=== PATIENT | male | born 1985 | race Caucasian/White ===

== ENCOUNTER 2017-04-05 05:27 | Emergency (ER) | payer MEDICAID, OTHER ==
[2017-04-05 05:32] VITALS: BMI 26.5
[2017-04-05 05:38] VITALS: BP 134/83; PULSE 87; RESP 18; TEMP 98.3; O2SAT 99
--- NOTE | 2017-04-05 05:55 | ED PDOC ---
Arrival/HPI - General Chief Complaint: ENT Problem Time Seen by Provider: 04/05/17 05:45 Historian: Patient - History of Present Illness Narrative History of Present Illness (Text): 04/05/17 05:52 Star Morton is a 31 year old male, with a history of asthma, presents to the emergency department complaining of 2 day duration of sore throat. States throat discomfort is worsened while swallowing. Patient also complains of some abdominal pain with 1 episode of vomiting today morning prior to arrival. States he took an unknown antibiotic earlier today for minimal relief. Denies fever, chills, headache, dizziness, chest pain, difficulty breathing, diarrhea, urinary symptoms, or any other complaints at this time. Time/Duration: < week (2 days ) Symptom Onset: Gradual Symptom Course: Unchanged Severity Level: Mild Activities at Onset: Light Past Medical History - Provider Review Nursing Documentation Reviewed: Yes - Infectious Disease Hx of Infectious Diseases: None - Tetanus Immunization Tetanus Immunization: Unknown - Cardiac Hx Cardiac Disorders: No - Pulmonary Hx Respiratory Disorders: Yes Hx Asthma: Yes - Neurological Hx Neurological Disorder: No - HEENT Hx HEENT Disorder: Yes Other/Comment: H/O nasal fx - Renal Hx Renal Disorder: No - Endocrine/Metabolic Hx Endocrine Disorders: No - Hematological/Oncological Hx Blood Disorders: No - Integumentary Hx Dermatological Disorder: No - Musculoskeletal/Rheumatological Hx Musculoskeletal Disorders: No - Gastrointestinal Hx Gastrointestinal Disorders: No - Genitourinary/Gynecological Hx Genitourinary Disorders: No - Psychiatric Hx Psychophysiologic Disorder: No Hx Substance Use: No - Anesthesia Hx Anesthesia: No Hx Anesthesia Reactions: No Hx Malignant Hyperthermia: No Family/Social History - Physician Review Nursing Documentation Reviewed: Yes Family/Social History: No Known Family HX Smoking Status: Never Smoked Hx Alcohol Use: No Hx Substance Use: No Allergies/Home Meds Allergies/Adverse Reactions: Allergies amoxicillin Allergy (Verified 04/05/17 05:58) RASH cetirizine Allergy (Verified 01/14/16 09:49) FEVER cetirizine HCl [From Zyrtec] Allergy (Verified 01/14/16 09:49) SWELLING naproxen [From Naprosyn] Allergy (Verified 01/14/16 09:49) VOMITING dogs,cats roaches, oak trees Allergy (Uncoded 01/14/16 09:49) SHORTNESS OF BREATH seafood Allergy (Uncoded 01/14/16 09:49) SWELLING seasonal allergies Allergy (Uncoded 01/14/16 09:49) CONGESTION Review of Systems - Physician Review All systems were reviewed & negative as marked: Yes - Review of Systems Constitutional: Normal. absent: Fatigue, Fevers ENT: Sore Throat Gastrointestinal: Abdominal Pain, Nausea, Vomiting. absent: Diarrhea Neurological: Normal. absent: Headache, Dizziness Physical Exam Vital Signs Reviewed: Yes Vital Signs Temp Pulse Resp BP Pulse Ox 04/05/17 05:35 98.3 F 87 18 134/83 99 Temperature: Afebrile Blood Pressure: Normal Pulse: Regular Respiratory Rate: Normal Appearance: Positive for: Well-Appearing, Non-Toxic, Comfortable Pain Distress: None Mental Status: Positive for: Alert and Oriented X 3 - Systems Exam Head: Present: Atraumatic, Normocephalic Pupils: Present: PERRL Extroacular Muscles: Present: EOMI Conjunctiva: Present: Normal Ears: Present: NORMAL TM, Normal Canal. No: Erythema, TM Bulging Mouth: Present: Moist Mucous Membranes Pharnyx: Present: ERYTHEMA. No: EXUDATE, TONSILS ENLARGED Respiratory/Chest: Present: Clear to Auscultation, Good Air Exchange. No: Respiratory Distress, Accessory Muscle Use Cardiovascular: Present: Regular Rate and Rhythm, Normal S1, S2. No: Murmurs Abdomen: Present: Normal Bowel Sounds. No: Tenderness, Distention, Peritoneal Signs Upper Extremity: Present: Normal Inspection. No: Cyanosis, Edema Lower Extremity: Present: Normal Inspection. No: Edema Neurological: Present: GCS=15, CN II-XII Intact, Speech Normal, Motor Func Grossly Intact, Normal Sensory Function Skin: Present: Warm, Dry, Normal Color. No: Rashes Psychiatric: Present: Alert, Oriented x 3, Normal Insight, Normal Concentration Medical Decision Making ED Course and Treatment: 04/05/17 06:00 Impression: A 31 year old male who presents to ed complaining of sore throat for 2 days, and 1 episode of vomiting today morning. Plan: -- Levaquin -- Decadron -- Zofran Progress Notes: - Medication Orders Current Medication Orders: Discontinued Medications Dexamethasone (Decadron Inj) 10 mg IM STAT STA Stop: 04/05/17 05:53 Last Admin: 04/05/17 06:01 Dose: 10 mg Levofloxacin (Levaquin) 500 mg PO STAT STA Stop: 04/05/17 06:02 Last Admin: 04/05/17 06:11 Dose: 500 mg Ondansetron HCl (Zofran Odt) 8 mg PO STAT STA Stop: 04/05/17 05:54 Last Admin: 04/05/17 06:01 Dose: 8 mg - Fifiibe Statement The provider has reviewed the documentation as recorded by the Froy Mistry Provider Attestation: All medical record entries made by the Froy were at my direction and personally dictated by me. I have reviewed the chart and agree that the record accurately reflects my personal performance of the history, physical exam, medical decision making, and the department course for this patient. I have also personally directed, reviewed, and agree with the discharge instructions and disposition. Disposition/Present on Arrival - Present on Arrival Any Indicators Present on Arrival: No History of DVT/PE: No History of Uncontrolled Diabetes: No Urinary Catheter: No History of Decub. Ulcer: No History Surgical Site Infection Following: None - Disposition Have Diagnosis and Disposition been Completed?: Yes Diagnosis: Upper respiratory infection Disposition: HOME/ ROUTINE Disposition Time: 06:15 Condition: GOOD Discharge Instructions (ExitCare): Upper Respiratory Infection (ED) Prescriptions: levoFLOXacin [Levaquin] 500 mg PO DAILY #10 tab Ondansetron [Zofran Odt] 8 mg PO TID PRN #10 odt PRN Reason: Nausea/Vomiting Forms: WORK NOTE
[2017-04-05] MEDS ORDERED: levoFLOXacin 500 MG TAB PO STA (06:01)
== END 2017-04-05 06:23 | disposition home or self-care (01) ==
LOC: ED 05:27
DX: J06.9 Acute upper respiratory infection, unspecified (principal)
CPT/HCPCS: 96372; 99283; J1100

== ENCOUNTER 2017-12-13 00:52 | Emergency (ER) | payer MEDICAID ==
[2017-12-13 00:53] VITALS: BMI 26.5
[2017-12-13 01:11] VITALS: BP 128/87; PULSE 97; RESP 18; TEMP 99.2; O2SAT 99
--- NOTE | 2017-12-13 01:39 | ED PDOC ---
Arrival/HPI - General Chief Complaint: Fever Time Seen by Provider: 12/13/17 01:19 Historian: Patient - History of Present Illness Narrative History of Present Illness (Text): 12/13/17 01:36 32 year old male, whose past medical history includes asthma and nasal fracture , presents to the Emergency department complaining of sore throat, nasal congestion and ear ache for several days. Patient informs visiting PMD and compliance with the prescribed medications with no improvement to symptoms. Patient denies any fever, chills, nausea, vomiting, diarrhea, chest pain, shortness of breath, abdominal pain, sick contact or any other complaints. Time/Duration: < week Symptom Onset: Gradual Symptom Course: Unchanged Activities at Onset: Light Context: Home Past Medical History - Provider Review Nursing Documentation Reviewed: Yes - Infectious Disease Hx of Infectious Diseases: None - Tetanus Immunization Tetanus Immunization: Unknown - Cardiac Hx Cardiac Disorders: No - Pulmonary Hx Respiratory Disorders: Yes Hx Asthma: Yes - Neurological Hx Neurological Disorder: No - HEENT Hx HEENT Disorder: Yes Other/Comment: H/O nasal fx - Renal Hx Renal Disorder: No - Endocrine/Metabolic Hx Endocrine Disorders: No - Hematological/Oncological Hx Blood Disorders: No - Integumentary Hx Dermatological Disorder: No - Musculoskeletal/Rheumatological Hx Musculoskeletal Disorders: No - Gastrointestinal Hx Gastrointestinal Disorders: No - Genitourinary/Gynecological Hx Genitourinary Disorders: No - Psychiatric Hx Psychophysiologic Disorder: No Hx Substance Use: No - Anesthesia Hx Anesthesia: No Hx Anesthesia Reactions: No Hx Malignant Hyperthermia: No Family/Social History - Physician Review Nursing Documentation Reviewed: Yes Family/Social History: No Known Family HX Smoking Status: Never Smoked Hx Alcohol Use: No Hx Substance Use: No Allergies/Home Meds Allergies/Adverse Reactions: Allergies amoxicillin Allergy (Verified 12/13/17 03:16) RASH cetirizine Allergy (Verified 12/13/17 03:16) FEVER cetirizine HCl [From Zyrtec] Allergy (Verified 12/13/17 03:16) SWELLING naproxen [From Naprosyn] Allergy (Verified 12/13/17 03:16) VOMITING dogs,cats roaches, oak trees Allergy (Uncoded 12/13/17 03:16) SHORTNESS OF BREATH seafood Allergy (Uncoded 12/13/17 03:16) SWELLING seasonal allergies Allergy (Uncoded 12/13/17 03:16) CONGESTION Home Medications: Home Meds Medication Instructions Recorded Confirmed Gabapentin [Neurontin] 300 mg PO HS 12/13/17 12/13/17 Montelukast Sodium [Singulair] 10 mg PO HS 12/13/17 12/13/17 Review of Systems - Physician Review All systems were reviewed & negative as marked: Yes - Review of Systems Constitutional: Normal. absent: Fevers Eyes: Normal ENT: Sore Throat, Sinus Congestion, Other (Ear ache ) Respiratory: Normal. absent: SOB Cardiovascular: Normal. absent: Chest Pain Gastrointestinal: Normal. absent: Abdominal Pain, Diarrhea, Nausea, Vomiting Genitourinary Male: Normal Musculoskeletal: Normal Skin: Normal Neurological: Normal Endocrine: Normal Hemo/Lymphatic: Normal Psychiatric: Normal Physical Exam Vital Signs Reviewed: Yes Vital Signs Temp Pulse Resp BP Pulse Ox 12/13/17 01:05 99.2 F 97 H 18 128/87 99 Temperature: Afebrile Blood Pressure: Normal Pulse: Tachycardic Respiratory Rate: Normal Appearance: Positive for: Well-Appearing, Non-Toxic, Comfortable Pain Distress: None Mental Status: Positive for: Alert and Oriented X 3 - Systems Exam Head: Present: Atraumatic, Normocephalic Pupils: Present: PERRL Extroacular Muscles: Present: EOMI Conjunctiva: Present: Normal Ears: Present: Normal. No: TM Bulging Mouth: Present: Moist Mucous Membranes Pharnyx: Present: Normal, ERYTHEMA. No: EXUDATE Neck: Present: Lymphadenopathy Respiratory/Chest: Present: Clear to Auscultation, Good Air Exchange. No: Respiratory Distress, Accessory Muscle Use Cardiovascular: Present: Regular Rate and Rhythm, Normal S1, S2. No: Murmurs Abdomen: Present: Normal Bowel Sounds. No: Tenderness, Distention, Peritoneal Signs Back: Present: Normal Inspection Upper Extremity: Present: Normal Inspection. No: Cyanosis, Edema Lower Extremity: Present: Normal Inspection. No: Edema Neurological: Present: GCS=15, CN II-XII Intact, Speech Normal Skin: Present: Warm, Dry, Normal Color. No: Rashes Lymphatic: Present: Other (swollen lymph nodes ) Psychiatric: Present: Alert, Oriented x 3, Normal Insight, Normal Concentration Medical Decision Making ED Course and Treatment: 12/13/17 01:43 Impression: 32 year old male presents to the Emergency department for sore throat, ear ache and nasal congestion. Plan: -- Rapid Strep Test -- Influenza A/B -- Reassess and disposition Progress Notes: - Lab Interpretations Lab Results: Lab Results 12/13/17 01:46: Grp A Beta Strep Ag Negative 12/13/17 01:46: Influenza Typ A,B (EIA) Negative for flu a/b - Medication Orders Current Medication Orders: Discontinued Medications Clarithromycin (Biaxin Filmtab) 500 mg PO STAT STA PRN Reason: Protocol Stop: 12/13/17 02:50 Last Admin: 12/13/17 03:13 Dose: 500 mg Dexamethasone (Decadron Inj) 10 mg IM STAT STA Stop: 12/13/17 02:49 Last Admin: 12/13/17 03:13 Dose: 10 mg IM Administration Charges Document 12/13/17 03:13 OCS (Rec: 12/13/17 03:14 OCS [id number]) Injection Site MAR Injection Site Right Arm Charges for Administration # of IM Administrations 1 - Scribe Statement The provider has reviewed the documentation as recorded by the Scribe Isabell Chavez. All medical record entries made by the Scribe were at my direction and personally dictated by me. I have reviewed the chart and agree that the record accurately reflects my personal performance of the history, physical exam, medical decision making, and the department course for this patient. I have also personally directed, reviewed, and agree with the discharge instructions and disposition. Disposition/Present on Arrival - Present on Arrival Any Indicators Present on Arrival: No History of DVT/PE: No History of Uncontrolled Diabetes: No Urinary Catheter: No History of Decub. Ulcer: No History Surgical Site Infection Following: None - Disposition Have Diagnosis and Disposition been Completed?: Yes Diagnosis: Pharyngitis Disposition: HOME/ ROUTINE Disposition Time: 03:15 Condition: FAIR Discharge Instructions (ExitCare): Pharyngitis (ED) Prescriptions: Clarithromycin [Biaxin Filmtab] 500 mg PO BID #20 tab Clarithromycin [Biaxin Filmtab] 500 mg PO BID #20 tab Forms: [employer] (Russian)
== END 2017-12-13 03:15 | disposition home or self-care (01) ==
LOC: ED 00:52
DX: J02.9 Acute pharyngitis, unspecified (principal)
CPT/HCPCS: 82948; 87070; 87430; 87804; 96372; 99282; J1100

== ENCOUNTER 2018-03-07 08:35 | Emergency (ER) | payer MEDICAID ==
[2018-03-07 08:36] VITALS: BMI 26.5
[2018-03-07 09:03] VITALS: TEMP 99
[2018-03-07] MEDS ORDERED: Sodium Chloride 0.9% 1,000 ML IV STA (09:43)
[2018-03-07] MEDS ORDERED: Iohexol 350 MG/100 ML VIAL ONE (09:49)
--- NOTE | 2018-03-07 10:08 | ED PDOC ---
Arrival/HPI - General Chief Complaint: Fever Time Seen by Provider: 03/07/18 09:09 Historian: Patient - History of Present Illness Narrative History of Present Illness (Text): 03/07/18 10:05 32-year-old male presents today with nasal congestion and sore throat with right lower quadrant abdominal pain nausea and vomiting since this morning. Patient also states that he has been having fevers of 102 since yesterday. Patient states she's been taking Motrin for fever last dose of Motrin was at 7: 30 this morning. Patient denies sick contacts. Denies chest pain or shortness of breath. Denies back pain. Denies urinary symptoms. Patient states yesterday he started with high fever, nasal congestion and slight sore throat. Patient states today he developed right lower quadrant abdominal pain with nausea and vomiting. Patient denies diarrhea. No other complaints Time/Duration: Other (2 days) Quality: Stabbing Severity Level: 5, Moderate Past Medical History - Provider Review Nursing Documentation Reviewed: Yes - Travel History Have you recently traveled outside [place] w/in the past 3 mons?: No - Infectious Disease Hx of Infectious Diseases: None - Tetanus Immunization Tetanus Immunization: Unknown - Cardiac Hx Cardiac Disorders: No - Pulmonary Hx Respiratory Disorders: Yes Hx Asthma: Yes - Neurological Hx Neurological Disorder: No - HEENT Hx HEENT Disorder: Yes Other/Comment: H/O nasal fx - Renal Hx Renal Disorder: No - Endocrine/Metabolic Hx Endocrine Disorders: No - Hematological/Oncological Hx Blood Disorders: No - Integumentary Hx Dermatological Disorder: No - Musculoskeletal/Rheumatological Hx Musculoskeletal Disorders: No - Gastrointestinal Hx Gastrointestinal Disorders: No - Genitourinary/Gynecological Hx Genitourinary Disorders: No - Psychiatric Hx Psychophysiologic Disorder: No Hx Substance Use: No - Anesthesia Hx Anesthesia: No Hx Anesthesia Reactions: No Hx Malignant Hyperthermia: No Family/Social History - Physician Review Nursing Documentation Reviewed: Yes Family/Social History: Unknown Family HX Smoking Status: Never Smoked Hx Alcohol Use: No Hx Substance Use: No Allergies/Home Meds Allergies/Adverse Reactions: Allergies amoxicillin Allergy (Verified 03/07/18 09:04) RASH cetirizine Allergy (Verified 03/07/18 09:04) FEVER cetirizine HCl [From Zyrtec] Allergy (Verified 03/07/18 09:04) SWELLING naproxen [From Naprosyn] Allergy (Verified 03/07/18 09:04) VOMITING dogs,cats roaches, oak trees Allergy (Uncoded 03/07/18 09:04) SHORTNESS OF BREATH seafood Allergy (Uncoded 03/07/18 09:04) SWELLING seasonal allergies Allergy (Uncoded 03/07/18 09:04) CONGESTION Home Medications: Home Meds Medication Instructions Recorded Confirmed Gabapentin [Neurontin] 300 mg PO HS 12/13/17 12/13/17 Montelukast Sodium [Singulair] 10 mg PO HS 12/13/17 12/13/17 Review of Systems - Review of Systems Constitutional: Fevers. absent: Fatigue ENT: Sore Throat Respiratory: Cough Cardiovascular: absent: Chest Pain, Palpitations Gastrointestinal: Abdominal Pain, Nausea, Vomiting. absent: Constipation, Diarrhea Genitourinary Male: absent: Dysuria, Frequency, Hematuria Musculoskeletal: absent: Arthralgias, Back Pain, Neck Pain Skin: absent: Rash, Pruritis Neurological: absent: Headache, Dizziness Psychiatric: absent: Anxiety, Depression Physical Exam Vital Signs Reviewed: Yes Vital Signs Temp Pulse Resp BP Pulse Ox 03/07/18 14:00 74 16 145/68 100 03/07/18 12:35 80 16 137/89 97 03/07/18 09:01 99 F 98 H 18 136/75 97 Temperature: Afebrile Blood Pressure: Normal Pulse: Regular Respiratory Rate: Normal Appearance: Positive for: Well-Appearing, Non-Toxic, Comfortable Pain Distress: None Mental Status: Positive for: Alert and Oriented X 3 - Systems Exam Head: Present: Atraumatic Conjunctiva: Present: Normal Ears: Present: Normal, NORMAL TM Mouth: Present: Moist Mucous Membranes, Normal Lips, Normal Tounge. No: Drooling, Trismus Pharnyx: Present: ERYTHEMA. No: EXUDATE, TONSILS ENLARGED, Peritonsilar Swelling, Uvular Deviation, Muffled/Hoarse Voice, Strider, Soft Palate/Uvular Edema Nose (External): Present: Atraumatic Nose (Internal): Present: Normal Inspection Neck: Present: Normal Range of Motion Respiratory/Chest: Present: Clear to Auscultation, Good Air Exchange. No: Respiratory Distress, Accessory Muscle Use Cardiovascular: Present: Regular Rate and Rhythm, Normal S1, S2. No: Murmurs Abdomen: Present: Tenderness (RLQ tenderness; ), Normal Bowel Sounds, Guarding, McBurney's Point Tender. No: Distention, Peritoneal Signs, Rebound, Scars Back: Present: Normal Inspection. No: CVA Tenderness, Midline Tenderness, Paraspinal Tenderness Upper Extremity: Present: Normal ROM Neurological: Present: GCS=15, Speech Normal Skin: Present: Warm, Dry, Normal Color. No: Rashes Psychiatric: Present: Alert, Oriented x 3 Medical Decision Making ED Course and Treatment: 03/07/18 10:08 Patient is nontoxic well appearing with stable vital signs presenting with rlq abdominal pain, fever, sore throat, flu like symptoms rapid flu; negative CBC wbc;13 CMP wnl Lipase wnl Urinalysis: wnl CAT scan: FINDINGS: LOWER THORAX: Unremarkable. LIVER: Hepatic steatosis. No focal masses. No intrahepatic bile duct dilatation or perihepatic ascites. Incidental finding(s): Sub cm cyst right hepatic lobe GALLBLADDER AND BILE DUCTS: Unremarkable. PANCREAS: Unremarkable. No gross lesion or ductal dilatation. SPLEEN: Unremarkable. ADRENALS: Unremarkable. No mass. KIDNEYS AND URETERS: Unremarkable. No hydronephrosis. No solid mass. VASCULATURE: Unremarkable. No aortic aneurysm. BOWEL: Unremarkable. No obstruction. No gross mural thickening. APPENDIX: Normal appendix. PERITONEUM: Unremarkable. No free fluid. No free air. LYMPH NODES: Unremarkable. No enlarged lymph nodes. BLADDER: Unremarkable. REPRODUCTIVE: Unremarkable. BONES: No acute fracture. OTHER FINDINGS: None. IMPRESSION: No significant or acute findings to account for/ related to the clinical presentation. Additional benign and/or incidental findings described above. Patient reassessment:pt is non toxic well appearing; no distress. stable vitals. pt was seen and evaluated by dr. jerome (surgical technologist in [place]) due to RLQ tenderness with negative CT; he discussed case with dr. montez; no surgical intervention; Does not appear to be appendicitis. pt with + strep test; will treat with zithromax for pharngitis. advised increase fluids and f/u with PMD and ENT specialist. advised immediate return if symptoms worsen,persist or if new symptoms develop. Discussed all results with patient in depth. Patient verbalizes understanding of discharge instructions and need for immediate followup. all aspects of this case were discussed the attending of record. Impression: pharyngitis, Abdominal pain Tylenol every 4 hours as needed for pain/fever reduction zithromax; daily x 4 days. tamiflu; 1 tablet twice daily x 5 days. Follow up with primary care physician within the next 2 days Return immediately if symptoms worsen persist or if new symptoms develop: High fevers, increasing pain, vomiting, diarrhea or any other concerning symptoms develop Reassessment Condition: Re-examined, Improved - Lab Interpretations Lab Results: 03/07/18 10:00 03/07/18 10:00 Lab Results 03/07/18 12:30: Urine Color Yellow, Urine Appearance Clear, Urine pH 7.0, Ur Specific Wilsey <= 1.005, Urine Protein Negative, Urine Glucose (UA) Negative, Urine Ketones 15 H, Urine Blood Negative, Urine Nitrate Negative, Urine Bilirubin Negative, Urine Urobilinogen 0.2, Ur Leukocyte Esterase Negative 03/07/18 10:00: Grp A Beta Strep Ag Positive H 03/07/18 10:00: WBC 13.0 H D, RBC 5.27, Hgb 15.8, Hct 44.8, MCV 85.0, MCH 30.0, MCHC 35.3, RDW 12.8, Plt Count 288, MPV 9.2, Gran % 83.6 H, Lymph % (Auto) 7.1 L , [place] % (Auto) 7.6 H, Eos % (Auto) 1.5, Baso % (Auto) 0.2, Gran # 10.87 H, Lymph # (Auto) 0.9 L, [place] # (Auto) 1.0 H, Eos # (Auto) 0.2, Baso # (Auto) 0.02 03/07/18 10:00: Sodium 141, Potassium 4.1, Chloride 103, Carbon Dioxide 28, Anion Gap 13, BUN 17, Creatinine 1.0, Est GFR ( Amer) > 60, Est GFR (Non- Af Amer) > 60, Random Glucose 102, Calcium 9.9, Total Bilirubin 0.8, AST 28, ALT 32, Alkaline Phosphatase 128 H, Total Protein 8.7 H, Albumin 4.3, Globulin 4.4, Albumin/Globulin Ratio 1.0 L, Lipase 32 03/07/18 09:23: Influenza Typ A,B (EIA) Negative for flu a/b - RAD Interpretation Radiology Orders: 03/07/18 09:42 ABD & PELVIS IV CONTRAST ONLY [CT] Stat 03/07/18 10:07 CHEST PORTABLE [RAD] Stat - Medication Orders Current Medication Orders: Discontinued Medications Acetaminophen (Tylenol 325mg Tab) 975 mg PO STAT STA Stop: 03/07/18 09:44 Last Admin: 03/07/18 10:13 Dose: 975 mg MAR Pain/Vitals Document 03/07/18 10:13 BILL (Rec: 03/07/18 10:13 BILL [id number]) Pain Reassessment Is This A Pain ReAssessment? Yes Presence of Pain Presence of Pain Yes Pain Scale Used Pain Scale Used Numeric Location Pain Location Body Site Throat Description Burning Intensity 3 Scale Used Numeric Azithromycin (Zithromax) 500 mg PO STAT STA PRN Reason: Protocol Stop: 03/07/18 13:50 Last Admin: 03/07/18 14:03 Dose: 500 mg Sodium Chloride (Sodium Chloride 0.9%) 1,000 mls @ 999 mls/hr IV .Q1H1M STA Stop: 03/07/18 10:43 Last Admin: 03/07/18 10:12 Dose: 999 mls/hr eMAR Start Stop Document 03/07/18 10:12 BILL (Rec: 03/07/18 10:13 BILL [id number]) Intravenous Solution Start Date 03/07/18 Start Time 10:13 End Date 03/07/18 End time 11:13 Total Infusion Time 60 Disposition/Present on Arrival - Present on Arrival Any Indicators Present on Arrival: No History of DVT/PE: No History of Uncontrolled Diabetes: No Urinary Catheter: No History of Decub. Ulcer: No History Surgical Site Infection Following: None - Disposition Have Diagnosis and Disposition been Completed?: Yes Diagnosis: Pharyngitis, Abdominal pain Disposition: HOME/ ROUTINE Disposition Time: 13:56 Patient Plan: Discharge Condition: GOOD Discharge Instructions (ExitCare): Acute Abdomen (Belly Pain), Nausea and Vomiting, Adult, Strep Throat (DC) Additional Instructions: Tylenol every 4 hours as needed for pain/fever reduction zithromax; daily x 4 days. tamiflu; 1 tablet twice daily x 5 days. Follow up with primary care physician within the next 2 days Return immediately if symptoms worsen persist or if new symptoms develop: High fevers, increasing pain, vomiting, diarrhea or any other concerning symptoms develop Prescriptions: Azithromycin [Zithromax] 250 mg PO DAILY #4 tab Oseltamivir [Tamiflu] 75 mg PO BID #10 cap Referrals: Aston Mays DO [Staff Provider] - Follow up with primary Andreina Ybarra MD [Staff Provider] - Follow up with primary Forms: [employer] (Portuguese), WORK NOTE
[2018-03-07 10:21] LABS: BASO # 0.02 K/mm3 (0.0-2.0); BASO % 0.2 % (0.0-3.0); EOS # 0.2 (0.0-0.7); EOS % 1.5 % (1.5-5.0); GRAN # 10.87 (1.4-6.5); GRAN % 83.6 % (50.0-68.0); HEMOGLOBIN 15.8 g/dL (14.0-18.0); LYMPH # 0.9 (1.2-3.4); LYMPH % 7.1 % (22.0-35.0); MEAN CORPUSCULAR HGB CONC 35.3 g/dl (31.0-37.0); MEAN PLATELET VOLUME 9.2 fl (7.0-11.0); MONO % 7.6 % (1.0-6.0); RBC 5.27 10^6/uL (3.5-6.1); RED CELL DISTRIBUTION WIDTH 12.8 % (11.5-14.5)
[2018-03-07 10:35] LABS: ALBUMIN 4.3 g/dL (3.0-4.8); ALT/SGPT 32 U/L (7-56); AST/SGOT 28 U/L (17-59); BLOOD UREA NITROGEN 17 mg/dL (7-21); CALCIUM 9.9 mg/dL (8.4-10.5); GFR AFRICAN-AMERICAN > 60; GFR NON-AFRICAN AMERICAN > 60; LIPASE 32 U/L (23-300)
--- NOTE | 2018-03-07 12:14 | CT ---
PROCEDURE: CT Abdomen and Pelvis with contrast HISTORY: Right lower quadrant abdominal pain COMPARISON: 12/16/[address] abdomen and pelvis TECHNIQUE: Contrast dose: 100 cc Omnipaque 350 Radiation dose: Total exam DLP = 537.54 mGy-cm. This CT exam was performed using one or more of the following dose reduction techniques: Automated exposure control, adjustment of the mA and/or kV according to patient size, and/or use of iterative reconstruction technique. FINDINGS: LOWER THORAX: Unremarkable. LIVER: Hepatic steatosis. No focal masses. No intrahepatic bile duct dilatation or perihepatic ascites. Incidental finding(s): Sub cm cyst right hepatic lobe GALLBLADDER AND BILE DUCTS: Unremarkable. PANCREAS: Unremarkable. No gross lesion or ductal dilatation. SPLEEN: Unremarkable. ADRENALS: Unremarkable. No mass. KIDNEYS AND URETERS: Unremarkable. No hydronephrosis. No solid mass. VASCULATURE: Unremarkable. No aortic aneurysm. BOWEL: Unremarkable. No obstruction. No gross mural thickening. APPENDIX: Normal appendix. PERITONEUM: Unremarkable. No free fluid. No free air. LYMPH NODES: Unremarkable. No enlarged lymph nodes. BLADDER: Unremarkable. REPRODUCTIVE: Unremarkable. BONES: No acute fracture. OTHER FINDINGS: None. IMPRESSION: No significant or acute findings to account for/ related to the clinical presentation. Additional benign and/or incidental findings described above.
[2018-03-07 12:36] VITALS: RESP 16
--- NOTE | 2018-03-07 12:36 | RAD ---
HISTORY: fever COMPARISON: 01/14/2016 FINDINGS: LUNGS: No active pulmonary disease. PLEURA: No significant pleural effusion identified, no pneumothorax apparent. CARDIOVASCULAR: Normal. OSSEOUS STRUCTURES: No significant abnormalities. VISUALIZED UPPER ABDOMEN: Normal. OTHER FINDINGS: None. IMPRESSION: No active disease.
[2018-03-07 12:59] LABS: URINE APPEARANCE CLEAR (CLEAR); URINE BILIRUBIN NEGATIVE (NEGATIVE); URINE BLOOD NEGATIVE (NEGATIVE); URINE COLOR YELLOW (YELLOW); URINE GLUCOSE (UA) NEGATIVE (NEGATIVE); URINE LEUKOCYTE ESTERASE NEGATIVE Leu/uL (NEGATIVE); URINE PROTEIN NEGATIVE mg/dL (<30 mg/dL); URINE UROBILINOGEN 0.2 E.U./dL (<1 E.U./dL)
--- NOTE | 2018-03-07 13:44 | CP.PCM.CON ---
History of Present Illness - History of Present Illness History of Present Illness: Surgery Consult Note: 32 year old male evaluated for fever and RLQ abdominal pain. Patient presented to the ED with nasal congestion and sore throat since Monday and developed a fever to 102 this morning. Patient endorsed that this morning he began to have abdominal pain that he describes as intermittent and sharp that started in his RLQ after taking Motrin this AM. Patient also endorses one episode of non- bloody vomiting this morning without nausea. Patient now reports that his pain is primarily in his LLQ now after he voided urine. He reports that he has had similar pain like this in the past for which he had an EUD and was diagnosed with GERD. He denies chills, weight loss, lethargy, weakness, nausea, constipation, diarrhea, melena, hematochezia, anorexia, decreased appetite, or any skin changes. PMH: Asthma and GERD PSH: EUD (2010 and 2016) Family History: Non-contributory Social History: Denies tobacco, alcohol or illicit drug use Allergies: As per [facility] Home Medications: As per [facility] GI: Dr. Crockett ([place]) Review of Systems - Review of Systems Review of Systems: As per HPI, otherwise negative Past Patient History - Infectious Disease Hx of Infectious Diseases: None - Tetanus Immunizations Tetanus Immunization: Unknown - Past Social History Smoking Status: Never Smoked - CARDIAC Hx Cardiac Disorders: No - PULMONARY Hx Respiratory Disorders: Yes Hx Asthma: Yes - NEUROLOGICAL Hx Neurological Disorder: No - HEENT Hx HEENT Problems: Yes Other/Comment: H/O nasal fx - RENAL Hx Chronic Kidney Disease: No - ENDOCRINE/METABOLIC Hx Endocrine Disorders: No - HEMATOLOGICAL/ONCOLOGICAL Hx Blood Disorders: No - INTEGUMENTARY Hx Dermatological Problems: No - MUSCULOSKELETAL/RHEUMATOLOGICAL Hx Musculoskeletal Disorders: No - GASTROINTESTINAL Hx Gastrointestinal Disorders: No - GENITOURINARY/GYNECOLOGICAL Hx Genitourinary Disorders: No - PSYCHIATRIC Hx Psychophysiologic Disorder: No Hx Substance Use: No - SURGICAL HISTORY Hx Surgeries: No - ANESTHESIA Hx Anesthesia: No Hx Anesthesia Reactions: No Hx Malignant Hyperthermia: No Meds Allergies/Adverse Reactions: Allergies Allergy/AdvReac Type Severity Reaction Status Date / Time amoxicillin Allergy RASH Verified 03/07/18 09:04 cetirizine Allergy FEVER Verified 03/07/18 09:04 cetirizine HCl [From Zyrtec] Allergy SWELLING Verified 03/07/18 09:04 naproxen [From Naprosyn] Allergy VOMITING Verified 03/07/18 09:04 dogs,cats roaches, oak trees Allergy SHORTNESS Uncoded 03/07/18 09:04 OF BREATH seafood Allergy SWELLING Uncoded 03/07/18 09:04 seasonal allergies Allergy CONGESTION Uncoded 03/07/18 09:04 Physical Exam - Constitutional Appears: Non-toxic, No Acute Distress - Head Exam Head Exam: ATRAUMATIC, NORMOCEPHALIC - Eye Exam Eye Exam: EOMI, Normal appearance - ENT Exam ENT Exam: Mucous Membranes Moist - Neck Exam Neck exam: Positive for: Full Rom - Respiratory Exam Respiratory Exam: Clear to Auscultation Bilateral, NORMAL BREATHING PATTERN. absent: Rales, Rhonchi, Wheezes - Cardiovascular Exam Cardiovascular Exam: REGULAR RHYTHM - GI/Abdominal Exam GI & Abdominal Exam: Normal Bowel Sounds, Soft, Tenderness (Mild TTP to LLQ). absent: Bruit, Diminished Bowel Sounds, Distended, Firm, Guarding, Hernia, Hyperactive Bowel Sounds, Hypoactive Bowel Sounds, Mass, Organomegaly, Pulsatile Mass, Rebound, Rigid - Extremities Exam Extremities exam: Positive for: normal inspection - Back Exam Back exam: NORMAL INSPECTION - Neurological Exam Neurological exam: Alert, Oriented x3 - Psychiatric Exam Psychiatric exam: Normal Affect, Normal Mood - Skin Skin Exam: Dry, Intact, Normal Color, Warm Results - Vital Signs Recent Vital Signs: Last Vital Signs Temp 99 F 03/07/18 09:01 Pulse 80 03/07/18 12:35 Resp 16 03/07/18 12:35 BP 137/89 03/07/18 12:35 Pulse Ox 97 03/07/18 12:35 - Labs Result Diagrams: 03/07/18 10:00 03/07/18 10:00 Labs: Laboratory Results - last 24 hr 03/07/18 03/07/18 03/07/18 09:23 10:00 10:00 WBC 13.0 H D RBC 5.27 Hgb 15.8 Hct 44.8 MCV 85.0 MCH 30.0 MCHC 35.3 RDW 12.8 Plt Count 288 MPV 9.2 Gran % 83.6 H Lymph % (Auto) 7.[address] [place] % (Auto) 7.6 H Eos % (Auto) 1.5 Baso % (Auto) 0.2 Gran # 10.87 H Lymph # (Auto) 0.[address] [place] # (Auto) 1.0 H Eos # (Auto) 0.2 Baso # (Auto) 0.02 Sodium 141 Potassium 4.1 Chloride 103 Carbon Dioxide 28 Anion Gap 13 BUN 17 Creatinine 1.0 Est GFR ( Amer) > 60 Est GFR (Non-Af Amer) > 60 Random Glucose 102 Calcium 9.9 Total Bilirubin 0.8 AST 28 ALT 32 Alkaline Phosphatase 128 H Total Protein 8.7 H Albumin 4.3 Globulin 4.4 Albumin/Globulin Ratio 1.0 L Lipase 32 Urine Color Urine Appearance Urine pH Ur Specific [place] Urine Protein Urine Glucose (UA) Urine Ketones Urine Blood Urine Nitrate Urine Bilirubin Urine Urobilinogen Ur Leukocyte Esterase Influenza Typ A,B (EIA) Negative for flu a/b Grp A Beta Strep Ag 03/07/18 03/07/18 10:00 12:30 WBC RBC Hgb Hct MCV MCH MCHC RDW Plt Count MPV Gran % Lymph % (Auto) [place] % (Auto) Eos % (Auto) Baso % (Auto) Gran # Lymph # (Auto) [place] # (Auto) Eos # (Auto) Baso # (Auto) Sodium Potassium Chloride Carbon Dioxide Anion Gap BUN Creatinine Est GFR ( Amer) Est GFR (Non-Af Amer) Random Glucose Calcium Total Bilirubin AST ALT Alkaline Phosphatase Total Protein Albumin Globulin Albumin/Globulin Ratio Lipase Urine Color Yellow Urine Appearance Clear Urine pH 7.0 Ur Specific [place] <= 1.005 Urine Protein Negative Urine Glucose (UA) Negative Urine Ketones 15 H Urine Blood Negative Urine Nitrate Negative Urine Bilirubin Negative Urine Urobilinogen 0.2 Ur Leukocyte Esterase Negative Influenza Typ A,B (EIA) Grp A Beta Strep Ag Positive H Assessment & Plan - Assessment and Plan (Free Text) Assessment: 32 year old male evaluated for fever and RLQ abdominal pain Plan: -CT reviewed: Appendix normal caliber and without signs of inflammation -No surgical interventions indicated at this time Discussed with Dr. Arzate - Date & Time Date: 03/07/18 Time: 13:45
[2018-03-07 14:01] VITALS: BP 145/68; PULSE 74; O2SAT 100
== END 2018-03-07 14:05 | disposition home or self-care (01) ==
LOC: ED 08:35
DX: J02.9 Acute pharyngitis, unspecified (principal); R10.9 Unspecified abdominal pain
CPT/HCPCS: 71045; 74177; 80053; 81003; 83690; 85025; 87430; 87804; 96360; 99282; J7040; Q9967